=== PATIENT | male | born 1995 | race Caucasian/White ===

== ENCOUNTER 2017-06-13 05:01 | Emergency (ER) | payer SELFPAY ==
[2017-06-13 05:10] VITALS: BP 152/97
--- NOTE | 2017-06-13 05:53 | ERNOTE ---
Medical Problem HPI - General Chief Complaint: General Assessment Time Seen by Provider: 06/13/17 05:20 Source: patient Exam Limitations: no limitations - Immun/Allergies/Home Medications Immunizations: IMMUNIZATION HX History of Influenza Vaccine No Allergies/Adverse Reactions: Allergies No Known Allergies Allergy (Verified 06/13/17 05:09) Home Medications: HOME MEDICATIONS Bupropion HCl [Wellbutrin Xl] 300 mg PO DAILY 06/13/17 [Last Taken Unknown] - History of Present History Narrative: Pt comes to ER stating that his medication is causing him to be tired. He states that he wasn't tired when he was on the 150mg bupropion and since he was increased to the 300 mg he has only been able to be awake long enough to go to work and come home and sleep. He states that he was placed on this medication after begin given a PRN anxiety medication that he took everyday and thus was changed to this medication that was meant for everyday use. Timing: getting worse Severity: moderate Modifying Factors - (Worsens): Present: medication Review of Systems - Review of Systems Constitutional: Present: fatigue. Absent: recent illness EYE: Present: no symptoms reported ENT: Present: no symptoms reported Respiratory: Absent: shortness of breath Cardiology: Present: no symptoms reported Gastrointestinal/Abdominal: Present: no symptoms reported Genitourinary: Present: no symptoms reported Musculoskeletal: Present: no symptoms reported Skin: Present: no symptoms reported Neurological: Absent: numbness, tingling Endocrine: Present: no symptoms reported Hematologic/Lymphatic: Present: no symptoms reported Psych: Present: anxiety - Patient's Past Medical History Patient History - Medical: No pertinent hx, Anxiety Patient History - Cancer: No Hx of Cancer Patient History - Surgical Procedures: Other - Social History Living Situations: home Alcohol Use: none Drug Use: none - Immunizations History of Influenza Vaccine: No Physical Exam - Physical Exam General Appearance: Present: wd/wn, alert, no apparent distress Head Exam: Present: normal inspection, no evidence of injury Eye Exam: Normal inspection: bilateral Neck: Present: supple, full range of motion Respiratory: Present: no respiratory distress, no accessory muscle use Back Exam: Present: normal inspection, normal range of motion Extremity Exam: Present: normal inspection, normal range of motion Neurological Exam: Present: alert, oriented, normal mood/affect, purchasing/receiving II-XII nml as tested Skin Exam: Present: normal color, warm/dry ED Progress - Vital Signs Vital Signs: Vital Signs 06/13/17 05:06 Pulse Rate 106 H Respiratory 12 Rate Blood Pressure 152/97 O2 Sat by Pulse 97 Oximetry - Progress/Reassessment Chief Complaint: General Assessment Progress Note-Subjective: 06/13/17 05:35 Discussed options with the patient and that it would better if I didn't make significant changes in this therapy as that should be done by his prescribing provider. Discussed some options: 1) Pt hasn't taken his medication regularly as he still has 10-15 tabs left and was given the medication almost 45 days ago. Suggested he could go a day or two without the medication until he could get into his provider. Pt states he can usually get into his provider within a day. 2) Since patient believes that this medication makes him tired and that would be unusual for this medication, I suggested he could try taking it an hour or two before bedtime on a day that he does not have to work or have other responsibilities the next day. This could show if the medication is really making him tired or if it is actually keeping him from sleeping well and thus he is then more tired the next day. In either case I suggested he make an appointment with is PCP as soon as possible and use these suggestions only until he can see her. Pt expressed understanding and actually stated that he plans on taking his medication before bedtime and see how that effects him. Departure Clinical Impression: Anxiety Adverse reaction to antidepressant drug Qualifiers: Encounter type: initial encounter Qualified Code(s): T43.205A - Adverse effect of unspecified antidepressants, initial encounter - Departure Disposition: Home Follow Up Needed Condition: Good Instructions: Hypersomnia, Panic Attacks, [id number] Additional Instructions: See Radha Alcazar as soon as you can to adjust or change your medication. You may in the mean time try taking your medication an hour or two before bedtime to see if it is truly making you tired. Referrals: Radha Alcazar, DIRECTOR ELECTRONICS [Primary Care Provider] -
== END 2017-06-13 05:37 | disposition home or self-care (01) ==
LOC: ER 05:01
DX: F41.9 Anxiety disorder, unspecified (principal); T43.205A Adverse effect of unspecified antidepressants, initial encounter

== ENCOUNTER 2017-06-29 13:57 | Emergency (ER) | payer BC ==
[2017-06-29] MEDS ORDERED: diphenhydrAMINE HCL 50 MG/ML VIAL IM ONE (14:12)
[2017-06-29] MEDS ORDERED: METHYLPREDNISOLONE ACETATE 80 MG/ML VIAL IM ONE (14:12)
[2017-06-29] MEDS ORDERED: METHYLPREDNISOLONE ACETATE 80 MG/ML VIAL ONE (14:14)
[2017-06-29] MEDS ORDERED: diphenhydrAMINE HCL 50 MG/ML VIAL ONE (14:14)
[2017-06-29] MEDS ORDERED: NITROPRUSSIDE SODIUM 50 MG in DEXTROSE 5 % IN WATER 500 ML IV PRN ×2 (14:27)
--- NOTE | 2017-06-29 14:31 | ERNOTE ---
Allergy Symptoms - ER Date of Service: 06/29/17 Presenting Symptoms: skin rash, itching Time Seen by Provider: 06/29/17 14:13 Source: patient Exam Limitations: no limitations Immunizations: IMMUNIZATION HX Immunizations Up to Date Yes History of Influenza Vaccine No Hx Pneumococcal Vaccination No Allergies/Adverse Reactions: Allergies No Known Allergies Allergy (Verified 06/29/17 14:04) Home Medications: HOME MEDICATIONS Bupropion HCl [Wellbutrin Xl] 300 mg PO DAILY 06/13/17 [Last Taken Unknown] - History of Present Illness Narrative: Pt. comes in with c/o skin rash from head to toe that started at 0900this morning and has steadily worsened throughout the day. Pt. denies any throat swelling, fever, SOB, CP, NVD, alleviating factors, but states that heat aggravates the rash. Pt. states that he used a new shampoo today. 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 Absent: recent illness, fever, chills, weakness, fatigue, malaise EYE: Present: no symptoms reported ENT: Present: no symptoms reported. Absent: nose pain, nose congestion, nasal drainage, sore throat, throat swelling Respiratory: Present: no symptoms reported. Absent: shortness of breath, cough , wheezing Cardiology: Present: no symptoms reported. Absent: chest pain, palpitations, edema Gastrointestinal/Abdominal: Present: no symptoms reported. Absent: nausea, vomiting, diarrhea Genitourinary: Present: no symptoms reported Musculoskeletal: Present: no symptoms reported. Absent: back pain, joint pain Skin: Present: no symptoms reported Neurological: Present: no symptoms reported. Absent: headache, dizziness/light- headedness, numbness, tingling All Other Systems: All systems neg except as marked - Patient's Past Medical History Patient History - Medical: Anxiety Patient History - Cardiac/Respiratory: Pneumonia Patient History - Cancer: No Hx of Cancer Patient History - Surgical Procedures: T & A, Other Patient History - Other: None - Social History Living Situations: home Psych History: Hx of Anxiety Smoking Status: Current every day smoker Alcohol Use: none Drug Use: none - Immunizations Immunizations Up to Date: Yes Hx Pneumococcal Vaccination: No History of Influenza Vaccine: No Physical Exam - Physical Exam General Appearance: Present: wd/wn, alert, no apparent distress Head Exam: Present: no evidence of injury, other - hives on forehead behind ears and on scalp Eye Exam: Normal inspection: bilateral, PERRL: bilateral, EOMI: bilateral Ears, Nose, Throat: Present: normal ENT inspection, normal pharynx. Absent: pharyngeal erythema, pharyngeal swelling, tonsillar swelling, dry mucous membranes Neck: Present: normal inspection, nontender. Absent: lymphadenopathy (R), lymphadenopathy (L) Respiratory: Present: no respiratory distress, normal breath sounds, no accessory muscle use, chest nontender, lungs clear Cardiovascular/Chest: Present: regular rate, rhythm, no murmur, normal peripheral pulses Gastrointestinal/Abdominal: Present: normal bowel sounds, nontender, nondistended, soft, no organomegaly Back Exam: Present: normal inspection Extremity Exam: Present: non-tender, normal range of motion, no edema, other - hives on BUE and BLE generalized Neurological Exam: Present: alert, oriented, normal mood/affect, no motor/ sensory deficits Skin Exam: Present: normal color, warm/dry, skin rash - generalized hivelike rash on face, chest arms and legs. Absent: pallor ED Progress - Vital Signs Patient's Vital Signs:: I have reviewed the patient's vital signs. Vital Signs: Vital Signs 06/29/17 14:01 Temperature 36.5 C Pulse Rate 117 H Respiratory 16 Rate Blood Pressure 148/64 O2 Sat by Pulse 96 Oximetry - Progress/Reassessment Chief Complaint: Allergic Reaction Progress:: Improved Departure Clinical Impression: Allergic reaction Qualifiers: Encounter type: initial encounter Qualified Code(s): T78.40XA - Allergy, unspecified, initial encounter - Departure Disposition: Home self-care Condition: Good Instructions: Contact Dermatitis, [id number], Form - Excuse from Work, School , or Physical Activity Additional Instructions: Please follow up with primary provider in 2-3 days. Referrals: Radha Alcazar, INTERNET MANAGER [Primary Care Provider] -
[2017-06-29 15:58] VITALS: BP 128/77
== END 2017-06-29 15:57 | disposition home or self-care (01) ==
LOC: ER 13:57
DX: T78.40XA Allergy, unspecified, initial encounter (principal); F17.200 Nicotine dependence, unspecified, uncomplicated; F41.9 Anxiety disorder, unspecified

== ENCOUNTER 2017-06-29 20:39 | Emergency (ER) | payer BC ==
[2017-06-29] MEDS ORDERED: FAMOTIDINE 10 MG/ML VIAL IV ONE ×2 (20:46→20:50)
[2017-06-29] MEDS ORDERED: hydrOXYzine PAMOATE 25 MG CAPSULE PO ONE (20:47)
[2017-06-29] MEDS ORDERED: hydrOXYzine PAMOATE 25 MG CAPSULE ONE (20:49)
[2017-06-29] MEDS ORDERED: METHYLPREDNISOLONE SOD SUCC/PF 40 MG/ML VIAL IM ONE (20:56)
[2017-06-29] MEDS ORDERED: METHYLPREDNISOLONE SOD SUCC/PF 40 MG/ML VIAL ONE (20:57)
--- NOTE | 2017-06-29 21:06 | ERNOTE ---
Integumentary HPI - Narrative Date of Service: 06/29/17 - General Presenting Symptoms: rash Time Seen by Provider: 06/29/17 20:41 Source: patient Exam Limitations: no limitations - Immun/Allergies/Home Medications Immunizations: IMMUNIZATION HX Immunizations Up to Date Yes History of Influenza Vaccine No Hx Pneumococcal Vaccination No Allergies/Adverse Reactions: Allergies Allergy/AdvReac Type Severity Reaction Status Date / Time No Known Allergies Allergy Verified 06/29/17 20:48 Home Medications: HOME MEDICATIONS Bupropion HCl [Wellbutrin Xl] 300 mg PO DAILY 06/13/17 [Last Taken Unknown] predniSONE [Prednisone] 3 tab PO DAILY #9 tab 06/29/17 [Last Taken Unknown] - History of Present Illness Narrative: Pt. comes in with c/o continued rash from 0900this morning. Pt. was seen here earlier today and states that the rash improved but then worsened again after taking a warm bath this evening. Pt. denies any SOB, throat swelling, fever, NVD , aggravating factors but states that medications improved the symptoms. Location: Reports: generalized Quality: Reports: itching, painful Severity: moderate Exposure: Reports: no cause identified Modifying Factors - (Improves): Reports: antihistamine, prednisone Modifying Factors - (Worsens): Reports: nothing Associated Symptoms: Reports: rash, hives Prior Treatment: Reports: recently seen, treated by physician Review of Systems - Review of Systems Constitutional: Present: no symptoms reported. Absent: recent illness, fever, chills, weakness, fatigue, malaise EYE: Present: no symptoms reported ENT: Present: no symptoms reported. Absent: nose congestion, nasal drainage, throat swelling Respiratory: Present: no symptoms reported. Absent: shortness of breath, cough , wheezing Cardiology: Present: no symptoms reported. Absent: chest pain, palpitations, edema Gastrointestinal/Abdominal: Present: no symptoms reported. Absent: nausea, vomiting, diarrhea Skin: Present: rash Neurological: Present: no symptoms reported. Absent: headache, dizziness/light- headedness, numbness, tingling All Other Systems: All systems neg except as marked - Patient's Past Medical History Patient History - Medical: Anxiety Patient History - Cardiac/Respiratory: Pneumonia Patient History - Cancer: No Hx of Cancer Patient History - Surgical Procedures: T & A, Other Patient History - Other: None - Social History Psych History: Hx of Anxiety - Immunizations Immunizations Up to Date: Yes Hx Pneumococcal Vaccination: No History of Influenza Vaccine: No Physical Exam - Physical Exam General Appearance: Present: wd/wn, alert, no apparent distress Head Exam: Present: normal inspection, no evidence of injury Eye Exam: Normal inspection: bilateral Ears, Nose, Throat: Present: normal ENT inspection, normal pharynx Neck: Present: normal inspection, nontender. Absent: lymphadenopathy (R), lymphadenopathy (L) Respiratory: Present: no respiratory distress, normal breath sounds, no accessory muscle use, chest nontender, lungs clear. Absent: stridor, wheezing Cardiovascular/Chest: Present: regular rate, rhythm, no murmur, normal peripheral pulses Skin Exam: Present: skin rash - hives on abdomen and B legs less than previously examined ED Progress - Vital Signs Patient's Vital Signs:: I have reviewed the patient's vital signs. Departure Clinical Impression: Allergic reaction Qualifiers: Encounter type: subsequent encounter Qualified Code(s): T78.40XD - Allergy, unspecified, subsequent encounter - Departure Disposition: Home self-care Condition: Good Instructions: Contact Dermatitis, [id number] Additional Instructions: Please use calamine lotion to the skin and continue Benedryl 50mg every 6 hours until symptoms resolve. And please start Steroids and Pepcid tomorrow and return to the ER if you develop difficulty swallowing or breathing. Do not take hot baths or showers. Referrals: Radha Alcazar, APPLIANCE MECHANIC [Primary Care Provider] -
[2017-06-29 21:13] VITALS: BP 145/86
== END 2017-06-29 21:13 | disposition home or self-care (01) ==
LOC: ER 20:39
DX: T78.40XD Allergy, unspecified, subsequent encounter (principal); F41.9 Anxiety disorder, unspecified